=== PATIENT | female | born 1955 | race Caucasian/White ===

== ENCOUNTER → 2017-06-07 | Outpatient (CLI) | payer BC ==
--- NOTE | 2017-06-07 10:03 | XR ---
EXAMINATION TYPE: XR shoulder complete LT DATE OF EXAM: 06/07/2017 COMPARISON: NONE HISTORY: Pain TECHNIQUE: Shoulder examined in 3 FINDINGS: The humeral head articulates with the glenoid. The acromio-clavicular junction is normal. Couple of curvilinear densities are adjacent to the humeral head below the acromion. Correlate for av ulsion. These are identified in the AP projection. A follow up study can be performed 7-10 days from acute trauma for continued pain. IMPRESSION: 1. Possible avulsions superior humeral head. This could be confirmed with CT.
== END | disposition home or self-care (01) ==
LOC: RADXRYALE 09:23
PROVIDERS: ATTEND Family Medicine
DX: S40.012A Contusion of left shoulder, initial encounter (principal)

== ENCOUNTER → 2021-10-10 | Outpatient (CLI) | payer BC, MEDICARE ==
--- NOTE | 2021-10-10 16:20 | XR ---
EXAMINATION TYPE: XR cervical spine comp DATE OF EXAM: 10/10/2021 COMPARISON: None HISTORY: Involuntary shaking TECHNIQUE: 5 view cervical spine FINDINGS: The odontoid is visualized appears normal. There is some limitation due to incisors over th e odontoid tip. Foramen are patent. Prevertebral space is normal. There is some exaggeration of cervi colin lordosis. Posterior spinal lamellar line is intact. Vertebral body heights and disc heights are p reserved. IMPRESSION: 1. No suspicious changes cervical spine
== END | disposition home or self-care (01) ==
LOC: RADXRYALE 11:01
PROVIDERS: ATTEND Family Medicine
DX: M54.2 Cervicalgia (principal); G25.2 Other specified forms of tremor; R20.2 Paresthesia of skin
CPT/HCPCS: 72050

== ENCOUNTER → 2022-02-20 | Outpatient (CLI) | payer MEDICARE, BC ==
--- NOTE | 2022-02-20 18:18 | XR ---
EXAMINATION TYPE: XR chest 2V DATE OF EXAM: 02/20/2022 COMPARISON: None HISTORY: 66-year-old female preoperative evaluation, [id number] TECHNIQUE: PA and lateral views FINDINGS: The cardiomediastinal silhouette, aorta, and pulmonary vasculature are within normal limits. Lungs an d pleural spaces are clear. IMPRESSION: No acute cardiopulmonary process.
== END | disposition home or self-care (01) ==
LOC: RADXRYALE 09:51
PROVIDERS: ATTEND Family Medicine
DX: Z01.811 Encounter for preprocedural respiratory examination (principal)
CPT/HCPCS: 71046

== ENCOUNTER → 2023-09-17 | Outpatient (CLI) | payer MEDICARE, BC ==
--- NOTE | 2023-09-17 12:09 | XR ---
EXAMINATION TYPE: XR chest 2V DATE OF EXAM: 09/17/2023 COMPARISON: 02/20/2022 INDICATION: Cough x3-4 months TECHNIQUE: Frontal and lateral views of the chest are obtained. FINDINGS: The heart size is normal. The pulmonary vasculature is normal. There is an infiltrate at the lingula. IMPRESSION: 1. Lingular infiltrate. Correlate for pneumonia.
== END | disposition home or self-care (01) ==
LOC: RADXRYALE 10:01
PROVIDERS: ATTEND Family Medicine
DX: R05.9 Cough, unspecified (principal); R91.8 Other nonspecific abnormal finding of lung field; R07.1 Chest pain on breathing
CPT/HCPCS: 71046

== ENCOUNTER → 2023-09-24 | Outpatient (CLI) | payer MEDICARE, BC ==
--- NOTE | 2023-09-24 16:07 | XR ---
EXAMINATION TYPE: XR chest 2V DATE OF EXAM: 09/24/2023 COMPARISON: 09/17/2023 HISTORY: 68-year-old female [id number] COUGH, PNEUMONIA TECHNIQUE: Frontal and lateral views FINDINGS: Heart normal size. Aorta and pulmonary vasculature within normal limits. Mild hyperinflation. Inferio r lingular airspace opacity is becoming less confluence. No pleural effusion. IMPRESSION: Improving but residual pneumonia inferior lingula.
== END | disposition home or self-care (01) ==
LOC: RADXRYALE 10:27
PROVIDERS: ATTEND Family Medicine
DX: J18.1 Lobar pneumonia, unspecified organism (principal)
CPT/HCPCS: 71046

== ENCOUNTER → 2023-10-28 | Outpatient (CLI) | payer MEDICARE, BC ==
--- NOTE | 2023-10-28 16:08 | XR ---
EXAMINATION TYPE: XR ribs LT w pa chest xray, 5 views DATE OF EXAM: 10/28/2023 Comparison: 09/24/2023 Clinical History: 68-year-old female [id number] CHEST PAIN Findings: Heart normal size. Aorta and pulmonary vasculature are within normal limits. No consolidation or pleu ral effusion. No displaced left rib fracture seen. Slight levoconvex curvature centered along the thoracolumbar junction. Impression: No displaced left rib fracture seen. No acute cardiopulmonary process.
== END | disposition home or self-care (01) ==
LOC: RADXRYALE 09:42
PROVIDERS: ATTEND Family Medicine
DX: R07.9 Chest pain, unspecified (principal)

== ENCOUNTER → 2025-01-26 | Outpatient (CLI) | payer MEDICARE, BC ==
--- NOTE | 2025-01-26 16:19 | XR ---
EXAMINATION TYPE: XR Hip Complete LT DATE OF EXAM: 01/26/2025 3:51 PM INDICATION: Patient age:Female; 69 years old; Reason for study: [id number] LT HIP PAIN,PELVIC PAIN; [facility]. pain COMPARISON: None. TECHNIQUE: The left hip was examined in the frontal and lateral projections . FINDINGS: No evidence of any acute osseous pathology, joint dislocation, or soft tissue swelling. The re is medial joint space narrowing with acetabular sclerosis involving the left hip. Sclerotic focus within the left femoral neck likely representing a benign bone island. IMPRESSION: 1. No acute osseous pathology. 2. Mild osteoarthritic changes of the left hip. [facility], , 01/26/2025 4:17 PM
== END | disposition home or self-care (01) ==
LOC: RADXRYALE 15:22
PROVIDERS: ATTEND Family Medicine
DX: M16.12 Unilateral primary osteoarthritis, left hip (principal)
CPT/HCPCS: 73502